=== PATIENT | male | born 1965 | race Caucasian/White ===

== ENCOUNTER → 2017-03-20 | Outpatient (CLI) | payer BC ==
[~2017-03-20] MED LIST: ALPR0.5T PO; CHOL20007 OR; IOHEXOL 350 MG/ML 100ML IJ ONE; WARF5TAB PO
[2017-03-20 10:37] VITALS: BP 113/74
[2017-03-20 11:21] VITALS: BP 122/75
== END | disposition home or self-care (01) ==
LOC: Rad HDHVI 10:10
PROVIDERS: ATTEND Internal Medicine Cardiovascular Disease
DX: I10 Essential (primary) hypertension (principal); I35.0 Nonrheumatic aortic (valve) stenosis; E78.5 Hyperlipidemia, unspecified; R06.02 Shortness of breath; R07.89 Other chest pain
CPT/HCPCS: 71275; 82565; G0463; Q9967